=== PATIENT | male | born 1955 | race Caucasian/White ===

== ENCOUNTER 2017-10-06 02:26 | Emergency (ER) | payer OTHER ==
[2017-10-06 03:24] LABS: URINE BLOOD (Dip) POC 1+ (NEGATIVE); URINE GLUCOSE (Dip) POC Negative (NEGATIVE); URINE KETONES (Dip) POC Negative (NEGATIVE); URINE LEUKOCYTE EST (Dip) POC Negative (NEGATIVE); URINE NITRITE (Dip) POC Negative (NEGATIVE); URINE TOTAL PROTEIN POC Negative (NEGATIVE)
[2017-10-06 03:24] LABS: URINE PH (Dip) POC 5.5 (5.0-8.5)
== END 2017-10-06 03:58 | disposition home or self-care (01) ==
LOC: FTE 02:26
DX: R30.0 Dysuria (principal)
CPT/HCPCS: 81003; 99283